=== PATIENT | female | born 1940 | race Caucasian/White ===

== ENCOUNTER 2019-01-12 20:34 | Emergency (ER) | payer MEDICARE, BC ==
--- NOTE | 2019-01-12 21:23 | ED ---
General Adult HPI - General Chief complaint: Fall Stated complaint: Fall, head injury Time Seen by Provider: 01/12/19 21:00 Source: patient, RN notes reviewed, old records reviewed Mode of arrival: ambulatory Limitations: no limitations - History of Present Illness Initial comments: 78-year-old female patient presents ED with chief complaint of fall. Patient reports that this morning approximately 10 AM she was walking, tripped on a wire fell forward on the sidewalk. Patient did have trauma to her left right orbital region where she has a small abrasion. No loss of consciousness. No use of blood thinners. Patient also had a right wrist sprain. Patient was reportedly evaluated in urgent care where they x-rayed her right wrist and hand which were negative. She is presenting to the emergency room for a CAT scan of her head and her neck. Denies any pain in neck. Denies any changes in vision. Systemic: Pt denies fatigue, fever/chills, rash. Pt denies weakness, night sweats, weight loss. Neuro: Pt denies headache, visual disturbances, syncope or pre-syncope. HEENT: Pt denies ocular discharge or irritation, otalgia, rhinorrhea, pharyngitis or notable lymphadenopathy. Cardiopulmonary: Pt denies chest pain, SOB, heart palpitations, dyspnea on exertion. Abdominal/GI: Pt denies abdominal pain, n/v/d. : Pt denies dysuria, burning w/ urination, frequency/urgency. Denies new onset urinary or bowel incontinence. MSK: Pt denies myalgia, loss of strength or function in extremities. Neuro: Pt denies new onset weakness, paresthesias. - Related Data Home Medications Medication Instructions Recorded Confirmed Ascorbic Acid [Vitamin C] 500 mg PO DAILY 01/12/19 01/12/19 Calcium/Magnesium/Zinc 1 tab PO DAILY 01/12/19 01/12/19 [Ngkhygk-Gxkfwwnsh-Glrc Tablet] Citalopram Hydrobromide 40 mg PO DAILY 01/12/19 01/12/19 [Citalopram HBr] Fexofenadine HCl [Dariela Allergy] 180 mg PO DAILY 01/12/19 01/12/19 Gabapentin [Neurontin] 200 mg PO TID 01/12/19 01/12/19 Lisinopril [Zestril] 5 mg PO DAILY 01/12/19 01/12/19 Naproxen Sodium [Aleve] 220 mg PO BID PRN 01/12/19 01/12/19 Ranitidine HCl [Zantac] 75 mg PO DAILY PRN 01/12/19 01/12/19 Vitamin B Complex 1 cap PO DAILY 01/12/19 01/12/19 Allergies Allergy/AdvReac Type Severity Reaction Status Date / Time Sulfa (Sulfonamide Allergy Rash/Hives Verified 01/12/19 21:17 Antibiotics) Review of Systems ROS Statement: Those systems with pertinent positive or pertinent negative responses have been documented in the HPI. ROS Other: All systems not noted in ROS Statement are negative. Past Medical History Past Medical History: Hypertension History of Any Multi-Drug Resistant Organisms: None Reported Past Surgical History: Cholecystectomy, Tonsillectomy Past Psychological History: No Psychological Hx Reported Smoking Status: Never smoker Past Alcohol Use History: None Reported Past Drug Use History: None Reported General Exam - General Exam Comments Initial Comments: Constitutional: NAD, AOX3, Pt has pleasant affect. HEENT: NC/AT, trachea midline, neck supple, no lymphadenopathy. Posterior pharynx non erythematous, without exudates. External ears appear normal, without discharge. Mucous membranes moist. Eyes PERRLA, EOM intact. There is no scleral icterus. No pallor noted. Small abrasion noted to right lateral orbit region. Cardiopulmonary: RRR, no murmurs, rubs or gallops, no JVD noted. Lungs CTAB in anterior and posterior nuno. No peripheral edema. Abdominal exam: Abdomen soft and non-distended. Abdomen non-tender to palpation in all 4 quadrants. Bowel sounds active in LLQ. No hepatosplenomegaly. No ecchymosis Neuro: CN II-XII intact. No nuchal rigidity. No raccon eyes, no mccurdy sign, no hemotympanum. No cervical spinal tenderness. MSK: No posterior calf tenderness bilaterally, homans sign negative bilaterally. Posterior tibialis and radial pulse +2 bilaterally. Sensation intact in upper and lower extremities. Full active ROM in upper and lower extremities, 5/5 stregnth. Limitations: no limitations Course Vital Signs 01/12/19 20:43 Temperature 98.0 F Pulse Rate 60 Respiratory 18 Rate Blood Pressure 159/64 O2 Sat by Pulse 98 Oximetry Medical Decision Making - Medical Decision Making 78-year-old female patient presents ED with chief complaint of fall. Patient reports that this morning approximately 10 AM she was walking, tripped on a wire fell forward on the sidewalk. Patient did have trauma to her left right orbital region where she has a small abrasion. No loss of consciousness. No use of blood thinners. Patient also had a right wrist sprain. Patient was reportedly evaluated in urgent care where they x-rayed her right wrist and hand which were negative. She is presenting to the emergency room for a CAT scan of her head and her neck. Denies any pain in neck. Denies any changes in vision. Patient will signs stable, afebrile. Physical exam displayed small ecchymoses right lateral orbital region. Patient declined a tetanus update. CT facial bones, brain and C-spineacute process. Patient was discharged, follow up with primary care provider. Return here physician worsens. Case discussed with Dr. Dunlap. Disposition Clinical Impression: Fall Disposition: HOME SELF-CARE Condition: Stable Instructions (If sedation given, give patient instructions): Fall Prevention for Older Adults (ED) Additional Instructions: Patient to adhere to previously discussed treatment plan and will take medication(s) as directed. Patient to follow up with PCP in 1-2 days. Patient to return to ED if symptoms do not improve. Is patient prescribed a controlled substance at d/c from ED?: No Referrals: Nonstaff,Physician [Primary Care Provider] - 1-2 days
--- NOTE | 2019-01-12 22:04 | CT ---
EXAMINATION TYPE: CT facial bones wo con DATE OF EXAM: 01/12/2019 COMPARISON: None HISTORY: Fall. Bruising. CT DLP: 1005.3 mGycm Automated exposure control for dose reduction was used. TECHNIQUE: CT scan of the sinuses is performed without contrast, axial images are obtained, coronal r eformatted images are also reviewed. FINDINGS: The mandibular ring is intact. There is fairly normal aeration of the paranasal sinuses. Th ere is no evidence of a blowout fracture. Orbital margins are intact. The maxilla is intact. Nasal oneyda ne appears intact. There is no evidence of orbital mass. IMPRESSION: Negative CT scan of the sinuses and facial bones. No fracture. Minimal soft tissue swelli ng over the right frontal bone.
--- NOTE | 2019-01-12 22:07 | CT ---
EXAMINATION TYPE: CT brain wilder barger DATE OF EXAM: 01/12/2019 COMPARISON: None HISTORY: Fall injury, facial bruising CT DLP: 1005.3 mGycm Automated exposure control for dose reduction was used. TECHNIQUE: CT scan of the head and cervical spine are performed without contrast. FINDINGS: The cervical vertebra have normal alignment. There is degenerative disc space narrowing a t C5-6 C6-7 with spurring of the endplates. There is no evidence of a fracture. Facet joints are inta ct. The skull base is intact. There is some pleural and probably scarring at both lung apices. Ventricles and sulci appear normal for age. There is no mass effect nor midline shift. There is no si gn of intracranial hemorrhage. The calvarium is intact. Skull base appears intact. IMPRESSION: Negative CT scan of the brain. 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 No fracture.
[2019-01-12 22:52] VITALS: BP 151/74; PULSE 56; RESP 20; TEMP 97.6
== END 2019-01-12 22:53 | disposition home or self-care (01) ==
LOC: EC 20:34
DX: S05.11XA Contusion of eyeball and orbital tissues, right eye, initial encounter (principal); S63.501A Unspecified sprain of right wrist, initial encounter; I10 Essential (primary) hypertension; Z88.0 Allergy status to penicillin; Z79.899 Other long term (current) drug therapy; Z53.20 Procedure and treatment not carried out because of patient's decision for unspecified reasons; W01.0XXA Fall on same level from slipping, tripping and stumbling without subsequent striking against object, initial encounter; Y93.01 Activity, walking, marching and hiking; Y92.480 Sidewalk as the place of occurrence of the external cause
CPT/HCPCS: 70450; 70486; 72125; 99284